=== PATIENT | male | born 1965 | race Caucasian/White ===

== ENCOUNTER 2016-11-25 10:04 | Day surgery (SDC) | payer OTHER ==
[~2016-11-25] VITALS: Ht 182.9 cm; Wt 78.0 kg
[~2016-11-25 10:04] MED LIST: HYDROCHLOROTHIA25 MG PO; HYDROCODON-ACE1 EAC9 PO; IBUPROFEN600 MG PO; LISINOPRIL10 MG PO; METOPROLOL TART25 MG PO; VITAMIN B-12250 MCG PO
[2016-11-25 10:35] LABS: HEMATOCRIT 43.7 % (38.0-50.0); MCH 34.1 PG (29.0-34.0); MCHC 33.9 G/DL (30.0-36.0); MCV 100.7 FL (86-99); MEAN PLAT.VOLUME 9.4 uM^3 (9.0-12.4); PLATELET COUNT 313 K/uL (156-360); RBC DIS.WIDTH-CV 13.7 % (11.8-14.6); RED BLOOD COUNT 4.34 M/uL (4.00-5.50); WHITE BLOOD COUNT 10.8 K/uL (4.1-10.2)
[2016-11-25 10:39] VITALS: BP 135/67
[2016-11-25 10:53] LABS: ANION GAP 9 MEQ/L (2-14); CHLORIDE 102 MEQ/L (99-109); POTASSIUM 3.6 MEQ/L (3.7-5.4); SAMPLE HEMOLYSIS CHECK 0; SAMPLE ICTERIC CHECK 0; SAMPLE LIPEMIA CHECK 0; SODIUM 140 MEQ/L (136-147)
[2016-11-25 10:59] LABS: GFR ESTIMATE (CALCULATED) > 59 mL/min/; GLUCOSE 109 mg/dL (70-99); UREA NITROGEN (BUN) 14 mg/dL (9-23)
[2016-11-25 16:00] VITALS: BP 157/74
[2016-11-25 16:26] VITALS: BP 147/60
== END 2016-11-25 16:35 | disposition home or self-care (01) ==
LOC: SDC 10:04
PROVIDERS: Neurological Surgery
PROC: 0SB20ZZ Excision of Lumbar Vertebral Disc, Open Approach (ICD-10-PCS; principal; 2016-11-25)
DX: M54.16 Radiculopathy, lumbar region (principal); F17.200 Nicotine dependence, unspecified, uncomplicated; F41.9 Anxiety disorder, unspecified; I10 Essential (primary) hypertension; M48.06 Spinal stenosis, lumbar region; Z86.73 Personal history of transient ischemic attack (TIA), and cerebral infarction without residual deficits; G40.909 Epilepsy, unspecified, not intractable, without status epilepticus; Z88.0 Allergy status to penicillin; Z91.030 Bee allergy status; Z82.49 Family history of ischemic heart disease and other diseases of the circulatory system; Z80.9 Family history of malignant neoplasm, unspecified
CPT/HCPCS: 72020; 76000; 80048; 85027; J0330; J1040; J1100; J1170; J1885; J2405; J2710; J3010